=== PATIENT | female | born 1980 | race Caucasian/White ===

== ENCOUNTER 2017-09-28 14:23 | Emergency (ER) | payer OTHER ==
--- NOTE | 2017-09-28 16:29 | EDM.PDOC ---
ED HPI GENERAL MEDICAL PROBLEM - General Chief Complaint: Lower Extremity Injury/Pain Stated Complaint: RT LEG BLOOLDCLOTH Time Seen by Provider: 09/28/17 14:24 Source of Information: Reports: Patient History Limitations: Reports: No Limitations - History of Present Illness INITIAL COMMENTS - FREE TEXT/NARRATIVE: History of present illness: []Patient is in first trimester and was sent over from clinic to rule out a DVT right lower extremity. He has painful nodules that have been there for the past couple weeks. Patient denies any fevers, chills recent illnesses or recent antibiotic use. He states she's had varicose veins in the past but did not present similar. Patient denies any chest pain or shortness of breath. Review of systems: As per history of present illness and below otherwise all systems reviewed and negative. Past medical history: As per history of present illness and as reviewed below otherwise noncontributory. Surgical history: As per history of present illness and as reviewed below otherwise noncontributory. Social history: No reported history of drug or alcohol abuse. Family history: As per history of present illness and as reviewed below otherwise noncontributory. Physical exam: General: Well developed, well nourished in NAD HEENT: Atraumatic, normocephalic, pupils reactive, negative for conjunctival pallor or scleral icterus, mucous membranes moist, throat clear, neck supple, nontender, trachea midline. Lungs: Clear to auscultation, breath sounds equal bilaterally, chest nontender. Heart: S1S2, regular, negative for clicks, rubs, or JVD. Abdomen: Soft, nondistended, nontender. Negative for masses or hepatosplenomegaly. Negative for costovertebral tenderness. Pelvis: Stable nontender. Genitourinary: Deferred. Rectal: Deferred. Extremities: Atraumatic, 4-5 cm erythematous nodules that are tender patient no lesions of skin. negative for cords or calf pain. Neurovascular unremarkable. Neuro: Awake, alert, oriented. Cranial nerves II through XII unremarkable. Cerebellum unremarkable. Motor and sensory unremarkable throughout. Exam nonfocal. Diagnostics: []Ultrasound negative for DVT Therapeutics: [] Impression: []Erythema nodosum Plan: []Warm soaks Tylenol for pain follow-up with primary care. Definitive disposition and diagnosis as appropriate pending reevaluation and review of above. 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: Musculoskeletal History: Reports: None Neurological History: Reports: None Psychiatric History: Reports: None Endocrine/Metabolic History: Reports: None Hematologic History: Reports: None Immunologic History: Reports: None Oncologic (Cancer) History: Reports: None Dermatologic History: Reports: None - Infectious Disease History Infectious Disease History: Reports: Chicken Pox - Past Surgical History Head Surgeries/Procedures: Reports: None HEENT Surgical History: Reports: None Cardiovascular Surgical History: Reports: None Respiratory Surgical History: Reports: None GI Surgical History: Reports: Cholecystectomy Female Surgical History: Reports: None Endocrine Surgical History: Reports: None Neurological Surgical History: Reports: None Musculoskeletal Surgical History: Reports: None Oncologic Surgical History: Reports: None Dermatological Surgical History: Reports: None Social & Family History - Family History Family Medical History: Noncontributory - Tobacco Use Smoking Status *Q: Never Smoker Second Hand Smoke Exposure: No - Caffeine Use Caffeine Use: Reports: Soda - Recreational Drug Use Recreational Drug Use: No Review of Systems - Review of Systems Review Of Systems: See Below (See history of present illness) ED EXAM, GENERAL - Physical Exam Exam: See Below (See history of present illness) Course - Vital Signs Last Recorded V/S: Last Vital Signs Temp 97.3 F 09/28/17 14:34 Pulse 109 H 09/28/17 14:34 Resp 18 09/28/17 14:34 BP 110/88 09/28/17 14:34 Pulse Ox 98 09/28/17 14:34 - Orders/Labs/Meds Orders: Active Orders 24 hr Category Date Time Status Venous Doppler Lwr Ext Rt [US] Stat Exams 09/28/17 14:52 Taken Departure - Departure Time of Disposition: 16:28 Disposition: Home, Self-Care 01 Condition: Good Clinical Impression: Erythema nodosum - Discharge Information Referrals: Sandi Sun DO [Primary Care Provider] - Forms: ED Department Discharge Additional Instructions: The following information is given to patients seen in the emergency department who are being discharged to home. This information is to outline your options for follow-up care. We provide all patients seen in our emergency department with a follow-up referral. The need for follow-up, as well as the timing and circumstances, are variable depending upon the specifics of your emergency department visit. If you don't have a primary care physician on staff, we will provide you with a referral. We always advise you to contact your personal physician following an emergency department visit to inform them of the circumstance of the visit and for follow-up with them and/or the need for any referrals to a consulting specialist. The emergency department will also refer you to a specialist when appropriate. This referral assures that you have the opportunity for follow-up care with a specialist. All of these measure are taken in an effort to provide you with optimal care, which includes your follow-up. Under all circumstances we always encourage you to contact your private physician who remains a resource for coordinating your care. When calling for follow-up care, please make the office aware that this follow-up is from your recent emergency room visit. If for any reason you are refused follow-up, please contact the [facility] Emergency Department at and asked to speak to the emergency department charge nurse. [facility] [address] [place] [id number] - My Orders Last 24 Hours: My Active Orders 09/28/17 14:52 Venous Doppler Lwr Ext Rt [US] Stat - Assessment/Plan Last 24 Hours: My Active Orders 09/28/17 14:52 Venous Doppler Lwr Ext Rt [US] Stat
--- NOTE | 2017-10-01 08:52 | US ---
EXAM DATE: 09/28/17 PATIENT'S AGE: 36 Patient: ROXANA DONOVAN Facility: [place], [place] Site . Site : 1980 Study: US Extremity [id number] 3:55:36 PM Ordering Physician: Ty Kapadia Final Report: INDICATION: LEG PAIN, APPEARS LIKE ERYTHEMA NODOSUM RIGHT LOWER EXTREMITY VENOUS DUPLEX ULTRASOUND TECHNIQUE: Duplex sonography using grayscale imaging as well as color and spectral Doppler interrogation was performed over the right lower extremity with attention to the deep venous system. FINDINGS: The right common femoral, femoral, deep femoral, popliteal, and posterior tibial veins show normal compressibility, color Doppler flow, and augmentation response. Superficial varicose veins are noted over the right thigh. IMPRESSION: No evidence of deep venous thrombosis in the right lower extremity. DAISY RODRIGUEZ MD [employer] [employer] Dictated by: Edinson Rodriguez MD @ 09/28/2017 16:19:22 (Electronic Signature) Report Signed by Proxy. MTDHattie
== END 2017-09-28 16:45 | disposition home or self-care (01) ==
LOC: MW.ED 14:23
DX: O99.711 Diseases of the skin and subcutaneous tissue complicating pregnancy, first trimester (principal); L52 Erythema nodosum
CPT/HCPCS: 93971-26-RT; 93971-RT; 99283-25

== ENCOUNTER 2018-05-05 12:51 | Inpatient (IN) | payer OTHER ==
[2018-05-05] MEDS ORDERED: Methylergonovine 0.2 MG/1 ML Amp IM PRN (13:41)
[2018-05-05] MEDS ORDERED: Lidocaine 1% 50 ML MDV INJECT PRN (13:41)
[2018-05-05] MEDS ORDERED: Sodium Chloride 0.9% 2.5 ML Syringe FLUSH PRN (13:41)
[2018-05-05] MEDS ORDERED: Carboprost Tromethamine 250 MCG/1 ML Amp IM PRN (13:41)
[2018-05-05] MEDS ORDERED: Water For Irrigation,Sterile 1,000 ML Container IRR PRN (13:41)
[2018-05-05] MEDS ORDERED: Misoprostol 200 MCG Tab PO PRN (13:41)
[2018-05-05] MEDS ORDERED: Tranexamic Acid 1,000 MG in Sodium Chloride 0.9% 100 ML IV PRN (13:41)
[2018-05-05] MEDS ORDERED: Nalbuphine 10 MG/1 ML Vial IVPUSH PRN (13:41)
[2018-05-05] MEDS ORDERED: Sodium Chloride 0.9% 10 ML Syringe FLUSH PRN (13:41)
[2018-05-05] MEDS ORDERED: Oxytocin/0.9 % Sodium Chloride 30 UNIT/500 ML BAG IV SCH ×2 (13:45→14:00)
[2018-05-05] MEDS ORDERED: Lactated Ringers 1,000 ML IV SCH (13:45)
[2018-05-05] MEDS ORDERED: Terbutaline 1 MG/ML SDV SUBCUT PRN (13:47)
[2018-05-05] MEDS ORDERED: Misoprostol 25 MCG (1/4 of 100 MCG) Tab PO ONE ×2 (14:37→19:10)
[2018-05-05] MEDS ORDERED: Misoprostol 25 MCG (1/4 of 100 MCG) Tab VAG ONE ×2 (14:39→19:10)
[2018-05-05] MEDS ORDERED: Ampicillin 2 GM in Sodium Chloride 0.9% 100 ML IV ONE (14:40)
[2018-05-05] MEDS: Ampicillin 1 GM in Sodium Chloride 0.9% 50 ML IV SCH ×2 (18:51→22:36)
[2018-05-05] MEDS ORDERED: Ampicillin 1 GM in Sodium Chloride 0.9% 50 ML IV SCH (20:45)
[2018-05-05] MEDS ORDERED: fentaNYL 100 MCG/2 ML SDV ONE (23:05)
[2018-05-05] MEDS ORDERED: Bupivacaine 0.25% 10 ML SDV ONE (23:06)
[2018-05-05] MEDS ORDERED: Lidocaine HCl/EPINEPHrine 5 ML IJ ONE ×2 (23:06→23:07)
--- NOTE | 2018-05-05 23:48 | PCM.PREANE ---
Preanesthetic Assessment - Procedure Proposed Procedure: MADYSON - Anesthesia/Transfusion/Family Hx Anesthesia History: Prior Anesthesia Without Reaction - Review of Systems General: No Symptoms Pulmonary: No Symptoms Cardiovascular: No Symptoms Gastrointestinal: No Symptoms, Other (morbid obesity) Neurological: No Symptoms - Physical Assessment NPO Status Date: 05/05/18 NPO Status Time: 22:50 O2 Sat by Pulse Oximetry: 98 Respiratory Rate: 18 Blood Pressure: 125/71 Height: 1.73 m Weight: 149.685 kg ASA Class: 3E Mental Status: Alert & Oriented x3 Dentition: Reports: Normal Dentition Lungs: Clear to Auscultation Cardiovascular: Regular Rate - Lab Values: Laboratory Last Values WBC 13.48 K/uL (4.0-11.0) H 05/05/18 14:07 RBC 3.79 M/uL (4.30-5.90) L 05/05/18 14:07 Hgb 11.4 g/dL (12.0-16.0) L 05/05/18 14:07 Hct 34.5 % (36.0-46.0) L 05/05/18 14:07 MCV 91.0 fL (80.0-98.0) 05/05/18 14:07 MCH 30.1 pg (27.0-32.0) 05/05/18 14:07 MCHC 33.0 g/dL (31.0-37.0) 05/05/18 14:07 RDW Std Deviation 43.4 fl (28.0-62.0) 05/05/18 14:07 RDW Coeff of Shayy 13 % (11.0-15.0) 05/05/18 14:07 Plt Count 234 K/uL (150-400) 05/05/18 14:07 MPV 11.00 fL (7.40-12.00) 05/05/18 14:07 Nucleated RBC % 0.0 /100WBC 05/05/18 14:07 Nucleated RBCs # 0 K/uL 05/05/18 14:07 Blood Type A POSITIVE 05/05/18 14:07 Antibody Screen NEGATIVE 05/05/18 14:07 - Allergies Allergies/Adverse Reactions: Allergies Allergy/AdvReac Type Severity Reaction Status Date / Time No Known Allergies Allergy Verified 05/05/18 13:41 - Acknowledgements Anesthesia Type Planned: Epidural (patient aware of risks and benifits of MADYSON and wishes to proceed) Pt an Appropriate Candidate for the Planned Anesthesia: Yes Alternatives and Risks of Anesthesia Discussed w Pt/Guardian: Yes Pt/Guardian Understands and Agrees with Anesthesia Plan: Yes PreAnesthesia Questionnaire HEENT History: Reports: None Cardiovascular History: Reports: None Respiratory History: Reports: None Gastrointestinal History: Reports: None Genitourinary History: Reports: None 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: Musculoskeletal History: Reports: None Neurological History: Reports: None Psychiatric History: Reports: None Endocrine/Metabolic History: Reports: None Hematologic History: Reports: None Immunologic History: Reports: None Oncologic (Cancer) History: Reports: None Dermatologic History: Reports: None - Infectious Disease History Infectious Disease History: Reports: Chicken Pox - Past Surgical History Head Surgeries/Procedures: Reports: None HEENT Surgical History: Reports: None Cardiovascular Surgical History: Reports: None Respiratory Surgical History: Reports: None GI Surgical History: Reports: Cholecystectomy Female Surgical History: Reports: None Endocrine Surgical History: Reports: None Neurological Surgical History: Reports: None Musculoskeletal Surgical History: Reports: None Oncologic Surgical History: Reports: None Dermatological Surgical History: Reports: None - HOME MEDS Home Medications: Home Meds [id number]/Iron Fumarate/FA/DSS [ 19 Tablet] 1 tab PO DAILY 09/28/17 [ History] Acetaminophen [Tylenol Extra Strength] 500 mg PO DAILY 05/05/18 [History] - CURRENT (IN HOUSE) MEDS Current Meds: Current Medications Carboprost Tromethamine (Hemabate Ds) 250 mcg IM ASDIRECTED PRN PRN Reason: Post Hemorrhage Lactated Ringer's (Ringers, Lactated) 1,000 mls @ 150 mls/hr IV ASDIRECTED MAGGIE Last Admin: 05/05/18 23:40 Dose: 150 mls/hr Oxytocin/Sodium Chloride (Oxytocin 30 Unit/500 Ml-Ns) 30 unit in 500 mls @ 999 mls/hr IV TITRATE MAGGIE Oxytocin/Sodium Chloride (Oxytocin 30 Unit/500 Ml-Ns) 30 unit in 500 mls @ 2 mls/hr IV TITRATE MAGGIE; Protocol Tranexamic Acid 1,000 mg/ (Sodium Chloride) 110 mls @ 660 mls/hr IV ONETIME PRN PRN Reason: Bleeding Ampicillin Sodium 1 gm/ Sodium (Chloride) 50 mls @ 100 mls/hr IV Q4H [facility] Last Admin: 05/05/18 22:36 Dose: 100 mls/hr Lidocaine HCl (Xylocaine 1%) 50 ml INJECT ONETIME PRN PRN Reason: Laceration repair Methylergonovine Maleate (Methergine) 0.2 mg IM ASDIRECTED PRN PRN Reason: Post Hemorrhage Misoprostol (Cytotec) 200 mcg PO ONETIME PRN PRN Reason: Post Hemorrhage Nalbuphine HCl (Nubain) 10 mg IVPUSH Q1H PRN PRN Reason: Pain (severe 7-10) Sodium Chloride (Saline Flush) 10 ml FLUSH ASDIRECTED PRN PRN Reason: Keep Vein Open Sodium Chloride (Saline Flush) 2.5 ml FLUSH ASDIRECTED PRN PRN Reason: Keep Vein Open Sterile Water (Sterile Water For Irrigation) 1,000 ml IRR ASDIRECTED PRN PRN Reason: delivery Terbutaline Sulfate (Brethine) 0.25 mg SUBCUT ASDIRECTED PRN PRN Reason: Tacysystole Discontinued Medications Bupivacaine HCl (Sensorcaine-Mpf 0.25%) Confirm Administered Dose 10 ml .ROUTE .STK-MED ONE Stop: 05/05/18 23:07 Fentanyl (Sublimaze) Confirm Administered Dose 100 mcg .ROUTE .STK-MED ONE Stop: 05/05/18 23:06 Ampicillin Sodium 2 gm/ Sodium (Chloride) 100 mls @ 200 mls/hr IV ONETIME ONE Stop: 05/05/18 15:09 Last Admin: 05/05/18 14:55 Dose: 200 mls/hr Ampicillin Sodium 1 gm/ Sodium (Chloride) 50 mls @ 100 mls/hr IV Q6H [facility] Fentanyl/Bupivacaine HCl (Kllnbyxl-Lsjdq-Cm 2 Mcg/Ml-0.125%) Confirm Administered Dose 100 mls @ as directed .ROUTE .STK-MED ONE Stop: 05/05/18 23:07 Lidocaine/Epinephrine (Lidocaine 1.5%-Epi 1:200,000) Confirm Administered Dose 5 ml IJ .STK-MED ONE Stop: 05/05/18 23:07 Lidocaine/Epinephrine (Lidocaine 1.5%-Epi 1:200,000) Confirm Administered Dose 5 ml IJ .STK-MED ONE Stop: 05/05/18 23:08 Misoprostol (Cytotec) 25 mcg PO ONETIME ONE Stop: 05/05/18 14:38 Last Admin: 05/05/18 14:58 Dose: 25 mcg Misoprostol (Cytotec) 25 mcg VAG ONETIME ONE Stop: 05/05/18 14:40 Last Admin: 05/05/18 14:58 Dose: 25 mcg Misoprostol (Cytotec) 25 mcg VAG ONETIME ONE Stop: 05/05/18 19:11 Last Admin: 05/05/18 19:25 Dose: 25 mcg Misoprostol (Cytotec) 25 mcg PO ONETIME ONE Stop: 05/05/18 19:11 Last Admin: 05/05/18 19:25 Dose: 25 mcg
[2018-05-06] MEDS: Ampicillin 1 GM in Sodium Chloride 0.9% 50 ML IV SCH (02:39)
[2018-05-06] MEDS ORDERED: oxyCODONE 5 MG Tab PO PRN (03:54)
[2018-05-06] MEDS ORDERED: Docusate Sodium 100 MG Cap PO PRN (03:54)
[2018-05-06] MEDS ORDERED: Acetaminophen 500 MG Tab PO PRN (03:54)
[2018-05-06] MEDS ORDERED: Ibuprofen 400 MG Tab PO PRN (03:54)
[2018-05-06] MEDS ORDERED: Benzocaine/Menthol 20%-0.5% Spray 78 GM Cannister TOP PRN (03:54)
[2018-05-06] MEDS ORDERED: Bisacodyl 10 MG Supp RECTAL PRN (03:54)
[2018-05-06] MEDS ORDERED: Witch Hazel Medicated Pads 40/Jar TOP PRN (03:54)
[2018-05-06] MEDS ORDERED: Lanolin 100% Cream 7 GM Tube TOP PRN (03:54)
--- NOTE | 2018-05-06 03:54 | PCM.LDHP ---
L&D History of Present Illness - General Date of Service: 05/06/18 Admit Problem/Dx: Patient Status Order with Admit Dx/Problem 05/05/18 13:41 Patient Status [ADT] Routine Admission Diagnosis/Problem Admission Diagnosis/Problem Source of Information: Patient History Limitations: Reports: No Limitations - History of Present Illness Improves with: Reports: None Worsens with: Reports: None Associated Symptoms: Reports: N - Related Data Allergies/Adverse Reactions: Allergies Allergy/AdvReac Type Severity Reaction Status Date / Time No Known Allergies Allergy Verified 05/05/18 13:41 Home Medications: Home Meds [id number]/Iron Fumarate/FA/DSS [ 19 Tablet] 1 tab PO DAILY 09/28/17 [ History] Acetaminophen [Tylenol Extra Strength] 500 mg PO DAILY 05/05/18 [History] Past Medical History HEENT History: Reports: None Cardiovascular History: Reports: None Respiratory History: Reports: None Gastrointestinal History: Reports: None Genitourinary History: Reports: None 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: Musculoskeletal History: Reports: None Neurological History: Reports: None Psychiatric History: Reports: None Endocrine/Metabolic History: Reports: None Hematologic History: Reports: None Immunologic History: Reports: None Oncologic (Cancer) History: Reports: None Dermatologic History: Reports: None - Infectious Disease History Infectious Disease History: Reports: Chicken Pox - Past Surgical History Head Surgeries/Procedures: Reports: None HEENT Surgical History: Reports: None Cardiovascular Surgical History: Reports: None Respiratory Surgical History: Reports: None GI Surgical History: Reports: Cholecystectomy Female Surgical History: Reports: None Endocrine Surgical History: Reports: None Neurological Surgical History: Reports: None Musculoskeletal Surgical History: Reports: None Oncologic Surgical History: Reports: None Dermatological Surgical History: Reports: None Social & Family History - Family History Family Medical History: Noncontributory - Caffeine Use Caffeine Use: Reports: Soda H&P Review of Systems - Review of Systems: Review Of Systems: See Below General: Reports: No Symptoms HEENT: Reports: No Symptoms Pulmonary: Reports: No Symptoms Cardiovascular: Reports: No Symptoms Gastrointestinal: Reports: No Symptoms Genitourinary: Reports: No Symptoms Musculoskeletal: Reports: No Symptoms Skin: Reports: No Symptoms Psychiatric: Reports: No Symptoms Neurological: Reports: No Symptoms Hematologic/Lymphatic: Reports: No Symptoms Immunologic: Reports: No Symptoms L&D Exam - Exam Exam: See Below - Vital Signs Vital Signs: Last Vital Signs Temp Pulse Resp 18 05/05/18 23:48 BP 125/71 05/05/18 23:48 Pulse Ox 98 05/05/18 23:48 Weight: 149.685 kg - OB Specific Fundal Height In cm: 40 Contraction Intensity: Mild Movement: Active Heart Tones: Present Presentation: Vertex - Chavez Score Chavez Score Cervix Position: Midposition Chavez Score Consistency: Medium Chavez Score Effacement: 51-70% Chavez Score Dilation: 1-2 cm Chavez Score Infant's Station: -2 Chavez Score Total: 6 - Exam General: Alert, Oriented HEENT: PERRLA, Conjunctiva Clear, EACs Clear, EOMI, Hearing Intact, Mucosa Moist & Penn, Nares Patent, Normal Nasal Septum, Posterior Pharynx Clear, TMs Clear Neck: Supple, Trachea Midline Lungs: Clear to Auscultation, Normal Respiratory Effort Cardiovascular: Regular Rate, Regular Rhythm GI/Abdominal Exam: Normal Bowel Sounds, Soft, Non-Tender, No Organomegaly, No Distention, No Abnormal Bruit, No Mass, Pelvis Stable Rectal Exam: Normal Exam, Normal Rectal Tone Genitourinary: Normal external exam, Normal bimanual exam, Normal speculum exam Back Exam: Normal Inspection, Full Range of Motion Extremities: Normal Inspection, Normal Range of Motion, Non-Tender, No Pedal Edema, Normal Capillary Refill Skin: Warm, Dry, Intact Neurological: Cranial Nerves Intact, Reflexes Equal Bilateral Psychiatric: Alert, Normal Affect, Normal Mood - Patient Data Lab Results Last 24 hrs: Laboratory Results - last 24 hr 05/05/18 05/05/18 Range/Units 14:07 14:07 WBC 13.48 H (4.0-11.0) K/uL RBC 3.79 L (4.30-5.90) M/uL Hgb 11.4 L (12.0-16.0) g/dL Hct 34.5 L (36.0-46.0) % MCV 91.0 (80.0-98.0) fL MCH 30.1 (27.0-32.0) pg MCHC 33.0 (31.0-37.0) g/dL RDW Std Deviation 43.4 (28.0-62.0) fl RDW Coeff of Shayy 13 (11.0-15.0) % Plt Count 234 (150-400) K/uL MPV 11.00 (7.40-12.00) fL Nucleated RBC % 0.0 /100WBC Nucleated RBCs # 0 K/uL Blood Type A POSITIVE Antibody Screen NEGATIVE Result Diagrams: 05/05/18 14:07 Problem List Initiated/Reviewed/Updated: Yes Orders Last 24hrs: Active Orders 24 hr Category Date Time Status Patient Status [ADT] Routine ADT 05/05/18 13:41 Active May Shower [RC] ASDIRECTED Care 05/05/18 13:41 Active Notify Provider [RC] PRN Care 05/05/18 13:41 Active Oxygen Therapy [RC] ASDIRECTED Care 05/05/18 13:47 Active Up ad Kaitlynn [RC] ASDIRECTED Care 05/05/18 13:41 Active Vital Signs [RC] PER UNIT ROUTINE Care 05/05/18 13:41 Active Clear Liquid Diet [DIET] Diet 05/05/18 Dinner Active Ampicillin 1 gm Med 05/05/18 18:30 Active Sodium Chloride 0.9% [Normal Saline] 50 ml IV Q4H Carboprost Tromethamine [Hemabate DS] Med 05/05/18 13:41 Active 250 mcg IM ASDIRECTED PRN Lactated Ringers [Ringers, Lactated] 1,000 ml Med 05/05/18 13:45 Active IV ASDIRECTED Lidocaine 1% [Xylocaine 1%] Med 05/05/18 13:41 Active 50 ml INJECT ONETIME PRN Methylergonovine [Methergine] Med 05/05/18 13:41 Active 0.2 mg IM ASDIRECTED PRN Nalbuphine [Nubain] Med 05/05/18 13:41 Active 10 mg IVPUSH Q1H PRN Oxytocin/0.9 % Sodium Chloride [Oxytocin 30 Unit/500 ML Med 05/05/18 13:45 Active -NS] 30 unit in 500 ml IV TITRATE Oxytocin/0.9 % Sodium Chloride [Oxytocin 30 Unit/500 ML Med 05/05/18 14:00 Active -NS] 30 unit in 500 ml IV TITRATE Sodium Chloride 0.9% [Saline Flush] Med 05/05/18 13:41 Active 10 ml FLUSH ASDIRECTED PRN Sodium Chloride 0.9% [Saline Flush] Med 05/05/18 13:41 Active 2.5 ml FLUSH ASDIRECTED PRN Terbutaline [Brethine] Med 05/05/18 13:47 Active 0.25 mg SUBCUT ASDIRECTED PRN Tranexamic Acid [Cyklokapron] 1,000 mg Med 05/05/18 13:41 Active Sodium Chloride 0.9% [Normal Saline] 100 ml IV ONETIME Water For Irrigation,Sterile [Sterile Water for Med 05/05/18 13:41 Active Irrigation] 1,000 ml IRR ASDIRECTED PRN miSOPROStol [Cytotec] Med 05/05/18 13:41 Active 200 mcg PO ONETIME PRN Scalp Electrode [WOMSER] Per Unit Routine Oth 05/05/18 13:41 Ordered Peripheral IV Insertion Adult [OM.PC] Routine Oth 05/05/18 13:41 Ordered Resuscitation Status Routine Resus Stat 05/05/18 13:41 Ordered Medication Orders Carboprost Tromethamine (Hemabate Ds) 250 mcg IM ASDIRECTED PRN PRN Reason: Post Hemorrhage Lactated Ringer's (Ringers, Lactated) 1,000 mls @ 150 mls/hr IV ASDIRECTED MAGGIE Last Admin: 05/05/18 23:40 Dose: 150 mls/hr Oxytocin/Sodium Chloride (Oxytocin 30 Unit/500 Ml-Ns) 30 unit in 500 mls @ 999 mls/hr IV TITRATE [facility] Oxytocin/Sodium Chloride (Oxytocin 30 Unit/500 Ml-Ns) 30 unit in 500 mls @ 2 mls/hr IV TITRATE [facility]; Protocol Tranexamic Acid 1,000 mg/ (Sodium Chloride) 110 mls @ 660 mls/hr IV ONETIME PRN PRN Reason: Bleeding Ampicillin Sodium 1 gm/ Sodium (Chloride) 50 mls @ 100 mls/hr IV Q4H [facility] Last Admin: 05/06/18 02:39 Dose: 100 mls/hr Infusion: 05/05/18 23:06 Dose: 100 mls/hr Admin: 05/05/18 22:36 Dose: 100 mls/hr Infusion: 05/05/18 19:21 Dose: 100 mls/hr Admin: 05/05/18 18:51 Dose: 100 mls/hr Lidocaine HCl (Xylocaine 1%) 50 ml INJECT ONETIME PRN PRN Reason: Laceration repair Methylergonovine Maleate (Methergine) 0.2 mg IM ASDIRECTED PRN PRN Reason: Post Hemorrhage Misoprostol (Cytotec) 200 mcg PO ONETIME PRN PRN Reason: Post Hemorrhage Nalbuphine HCl (Nubain) 10 mg IVPUSH Q1H PRN PRN Reason: Pain (severe 7-10) Sodium Chloride (Saline Flush) 10 ml FLUSH ASDIRECTED PRN PRN Reason: Keep Vein Open Sodium Chloride (Saline Flush) 2.5 ml FLUSH ASDIRECTED PRN PRN Reason: Keep Vein Open Sterile Water (Sterile Water For Irrigation) 1,000 ml IRR ASDIRECTED PRN PRN Reason: delivery Terbutaline Sulfate (Brethine) 0.25 mg SUBCUT ASDIRECTED PRN PRN Reason: Tacysystole Assessment/Plan Comment:: IUP term admitted for elective induction.
[2018-05-06] MEDS: Acetaminophen 500 MG Tab PO PRN ×2 (05:07→16:30)
--- NOTE | 2018-05-06 06:58 | OR ---
SURGEON: Mark Anthony Hill MD DATE OF PROCEDURE: Ms. Chatman is 37 years old. She is para 7-0-0-7, all of them delivered via spontaneous vaginal delivery. The patient is followed in our clinic primarily by our nurse first responder. She is 39 plus weeks. She is admitted for elective induction because of her multiple previous vaginal births and she had does not live close to the hospital. At the time of admission, she was 1 cm, 50%, vertex was -3. Her GBS status is positive. She was started on antibiotic. According to the protocol, the patient was induced with Cytotec, 2 doses required for the cervix and she started having regular contraction. She progressed to 4 to 5 cm with bulging bag of water. She had epidural anesthesia for labor analgesia without any problem. heart rate was category I, and the patient had progressed from 8 to 9. With bulging bag of water and vertex presentation, I did an artificial rupture of the membrane, and amniotic fluid was clear. A few minutes later, the patient progressed to complete-complete, vertex, +1 to +2 station. It was felt that the fetus was in occiput posterior position, but the patient was able to push and accomplish normal spontaneous vaginal delivery of a male fetus. One nuchal cord was noticed. The fetus cried immediately. score and weight are not available at this time. The placenta was spontaneous, complete, and intact without any problem. There was no need for episiotomy. There was no vaginal or labial laceration. Estimated blood loss was 250 to 300 mL. heart rate was category I through the entire process of labor. There was no complication in the labor or the delivery. KATIE / JULIANA /[id number]
[2018-05-07] MEDS: Ibuprofen 800 MG Tab PO PRN ×2 (00:09→08:25)
--- NOTE | 2018-05-07 07:57 | PCM48HPAN ---
Post Anesthesia Note - EVALUATION WITHIN 48HRS OF ANESTHETIC Vital Signs in Normal Range: Yes Patient Participated in Evaluation: Yes Respiratory Function Stable: Yes Airway Patent: Yes Cardiovascular Function Stable: Yes Hydration Status Stable: Yes Pain Control Satisfactory: Yes Nausea and Vomiting Control Satisfactory: Yes Mental Status Recovered: Yes Resp Rate: 16 Blood Pressure: 125/71 - COMMENTS/OBSERVATIONS Free Text/Narrative:: Pt resting, but with plans to go home today. No apparent anesthesia complications.
--- NOTE | 2018-05-07 08:53 | PCM.DCSUM1 ---
Discharge Summary - Hospital Course Free Text/Narrative:: Discharge home with infant. Follow up in 6 weeks for post Diagnosis: Stroke: No - Discharge Data Discharge Date: 05/07/18 Discharge Disposition: Home, Self-Care 01 Condition: Good - Patient Instructions Diet: Usual Diet as Tolerated Activity: As Tolerated, No Strenuous Activities, Rest and Relax Today Driving: May Drive Today Showering/Bathing: May Shower Notify Provider of: Fever, Increased Pain, Swelling and Redness, Nausea and/or Vomiting Other/Special Instructions: Discharge home with . Follow up in 6 weeks for post - Discharge Plan *PRESCRIPTION DRUG MONITORING PROGRAM REVIEWED*: Not Applicable *COPY OF PRESCRIPTION DRUG MONITORING REPORT IN PATIENT [facility]ERNON: Not Applicable Home Medications: Home Meds [id number]/Iron Fumarate/FA/DSS [ 19 Tablet] 1 tab PO DAILY 09/28/17 [ History] Acetaminophen [Tylenol Extra Strength] 500 mg PO DAILY 05/05/18 [History] - Discharge Summary/Plan Comment DC Time >30 min.: Yes - General Info Date of Service: 05/07/18 Admission Dx/Problem (Free Text: Patient Status Order with Admit Dx/Problem 05/05/18 13:41 Patient Status [ADT] Routine Admission Diagnosis/Problem Admission Diagnosis/Problem Functional Status: Reports: Pain Controlled, Tolerating Diet, Ambulating, Urinating - Review of Systems General: Reports: No Symptoms HEENT: Reports: No Symptoms Pulmonary: Reports: No Symptoms Cardiovascular: Reports: No Symptoms Gastrointestinal: Reports: No Symptoms Genitourinary: Reports: No Symptoms Musculoskeletal: Reports: No Symptoms Skin: Reports: No Symptoms Neurological: Reports: No Symptoms Psychiatric: Reports: No Symptoms - Patient Data Vitals - Most Recent: Last Vital Signs Temp 36.2 C 05/07/18 08:05 Pulse 73 05/07/18 08:05 Resp 18 05/07/18 08:05 BP 126/70 05/07/18 08:05 Pulse Ox 99 05/07/18 08:05 Weight - Most Recent: 149.685 kg Lab Results - Last 24 hrs: Laboratory Results - last 24 hr 05/07/18 Range/Units 04:45 Hgb 10.7 L (12.0-16.0) g/dL Hct 32.7 L (36.0-46.0) % Med Orders - Current: Current Medications Acetaminophen (Tylenol Extra Strength) 500 mg PO Q4H PRN PRN Reason: Pain Acetaminophen (Tylenol Extra Strength) 1,000 mg PO Q4H PRN PRN Reason: Pain Last Admin: 05/06/18 16:30 Dose: 1,000 mg Benzocaine/Menthol (Dermoplast Pain Relief 20%-0.5% [place]) 78 gm TOP ASDIRECTED PRN PRN Reason: Perineal Comfort Measure Bisacodyl (Dulcolax) 10 mg RECTAL ONETIME PRN PRN Reason: Constipation Carboprost Tromethamine (Hemabate Ds) 250 mcg IM ASDIRECTED PRN PRN Reason: Post Hemorrhage Docusate Sodium (Colace) 100 mg PO BID PRN PRN Reason: Constipation Emollient Ointment (Lansinoh Hpa) 0 gm TOP ASDIRECTED PRN PRN Reason: Sore Nipples Last Admin: 05/06/18 05:08 Dose: 7 gm Lactated Ringer's (Ringers, Lactated) 1,000 mls @ 150 mls/hr IV ASDIRECTED MAGGIE Last Infusion: 05/06/18 03:48 Dose: 0 mls/hr Oxytocin/Sodium Chloride (Oxytocin 30 Unit/500 Ml-Ns) 30 unit in 500 mls @ 999 mls/hr IV TITRATE MAGGIE Last Infusion: 05/06/18 03:48 Dose: 999 mls/hr Oxytocin/Sodium Chloride (Oxytocin 30 Unit/500 Ml-Ns) 30 unit in 500 mls @ 2 mls/hr IV TITRATE [facility]; Protocol Tranexamic Acid 1,000 mg/ (Sodium Chloride) 110 mls @ 660 mls/hr IV ONETIME PRN PRN Reason: Bleeding Ibuprofen (Motrin) 400 mg PO Q4H PRN PRN Reason: Pain Ibuprofen (Motrin) 800 mg PO Q6H PRN PRN Reason: Pain Last Admin: 05/07/18 08:25 Dose: 800 mg Lidocaine HCl (Xylocaine 1%) 50 ml INJECT ONETIME PRN PRN Reason: Laceration repair Methylergonovine Maleate (Methergine) 0.2 mg IM ASDIRECTED PRN PRN Reason: Post Hemorrhage Misoprostol (Cytotec) 200 mcg PO ONETIME PRN PRN Reason: Post Hemorrhage Nalbuphine HCl (Nubain) 10 mg IVPUSH Q1H PRN PRN Reason: Pain (severe 7-10) Oxycodone HCl (Oxycodone) 5 mg PO Q2H PRN PRN Reason: Pain Sodium Chloride (Saline Flush) 10 ml FLUSH ASDIRECTED PRN PRN Reason: Keep Vein Open Sodium Chloride (Saline Flush) 2.5 ml FLUSH ASDIRECTED PRN PRN Reason: Keep Vein Open Sterile Water (Sterile Water For Irrigation) 1,000 ml IRR ASDIRECTED PRN PRN Reason: delivery Terbutaline Sulfate (Brethine) 0.25 mg SUBCUT ASDIRECTED PRN PRN Reason: Tacysystole Witch Fior (Tucks) 1 pad TOP ASDIRECTED PRN PRN Reason: comfort care Discontinued Medications Bupivacaine HCl (Sensorcaine-Mpf 0.25%) Confirm Administered Dose 10 ml .ROUTE .STK-MED ONE Stop: 05/05/18 23:07 Fentanyl (Sublimaze) Confirm Administered Dose 100 mcg .ROUTE .STK-MED ONE Stop: 05/05/18 23:06 Ampicillin Sodium 2 gm/ Sodium (Chloride) 100 mls @ 200 mls/hr IV ONETIME ONE Stop: 05/05/18 15:09 Last Admin: 05/05/18 14:55 Dose: 200 mls/hr Ampicillin Sodium 1 gm/ Sodium (Chloride) 50 mls @ 100 mls/hr IV Q6H MAGGIE Ampicillin Sodium 1 gm/ Sodium (Chloride) 50 mls @ 100 mls/hr IV Q4H MAGGIE Last Admin: 05/06/18 02:39 Dose: 100 mls/hr Fentanyl/Bupivacaine HCl (Pabkyllr-Ypoob-Di 2 Mcg/Ml-0.125%) Confirm Administered Dose 100 mls @ as directed .ROUTE .STK-MED ONE Stop: 05/05/18 23:07 Lidocaine/Epinephrine (Lidocaine 1.5%-Epi 1:200,000) Confirm Administered Dose 5 ml IJ .STK-MED ONE Stop: 05/05/18 23:07 Lidocaine/Epinephrine (Lidocaine 1.5%-Epi 1:200,000) Confirm Administered Dose 5 ml IJ .STK-MED ONE Stop: 05/05/18 23:08 Misoprostol (Cytotec) 25 mcg PO ONETIME ONE Stop: 05/05/18 14:38 Last Admin: 05/05/18 14:58 Dose: 25 mcg Misoprostol (Cytotec) 25 mcg VAG ONETIME ONE Stop: 05/05/18 14:40 Last Admin: 05/05/18 14:58 Dose: 25 mcg Misoprostol (Cytotec) 25 mcg VAG ONETIME ONE Stop: 05/05/18 19:11 Last Admin: 05/05/18 19:25 Dose: 25 mcg Misoprostol (Cytotec) 25 mcg PO ONETIME ONE Stop: 05/05/18 19:11 Last Admin: 05/05/18 19:25 Dose: 25 mcg - Exam General: Reports: Alert, Oriented, Cooperative, No Acute Distress Lungs: Reports: Clear to Auscultation, Normal Respiratory Effort. Denies: Decreased Breath Sounds, Crackles Cardiovascular: Reports: Regular Rate, Regular Rhythm. Denies: No Murmurs, Irregular Rhythm GI/Abdominal Exam: Normal Bowel Sounds, Soft, Non-Tender, No Organomegaly, No Distention, No Abnormal Bruit, No Mass, Pelvis Stable (Female) Exam: Deferred, Vaginal Bleeding Rectal (Female) Exam: Deferred Back Exam: Reports: Normal Inspection, Full Range of Motion Extremities: Normal Inspection, Normal Range of Motion, Non-Tender, No Pedal Edema, Normal Capillary Refill Skin: Reports: Warm, Dry, Intact Wound/Incisions: Reports: Healing Well Neurological: Reports: No New Focal Deficit Psy/Mental Status: Reports: Alert, Normal Affect, Normal Mood
== END 2018-05-07 11:30 | disposition home or self-care (01) | DRG 807 ==
LOC: MW.OBCHECK 12:51 → MW.OB 12:53 → MW.OBCHECK 13:35 → MW.OB 13:41 → OBSVTOIN 05-06 03:48
PROVIDERS: ADMIT Obstetrics & Gynecology; ATTEND Obstetrics & Gynecology
PROC: 3E0R3BZ Introduction of Anesthetic Agent into Spinal Canal, Percutaneous Approach (ICD-10-PCS; 2018-05-05)
PROC: 00HU33Z Insertion of Infusion Device into Spinal Canal, Percutaneous Approach (ICD-10-PCS; 2018-05-05)
PROC: 10E0XZZ Delivery of Products of Conception, External Approach (ICD-10-PCS; principal; 2018-05-06)
PROC: 3E0P7VZ Introduction of Hormone into Female Reproductive, Via Natural or Artificial Opening (ICD-10-PCS; principal; 2018-05-06)
PROC: 10907ZC Drainage of Amniotic Fluid, Therapeutic from Products of Conception, Via Natural or Artificial Opening (ICD-10-PCS; principal; 2018-05-06)
DX: O99.214 Obesity complicating childbirth (principal); Z37.0 Single live birth; E66.01 Morbid (severe) obesity due to excess calories; O99.824 Streptococcus B carrier state complicating childbirth; Z3A.39 39 weeks gestation of pregnancy; O64.0XX0 Obstructed labor due to incomplete rotation of fetal head, not applicable or unspecified; O69.81X0 Labor and delivery complicated by cord around neck, without compression, not applicable or unspecified
CPT/HCPCS: 01967; 36415; 51702; 59025; 59409; 85014; 85018; 85027; 86850; 86900; 86901; A9270-GY; J0290; J2590; J3010; J3490; J7030; J7050; J7120

== ENCOUNTER 2022-04-06 06:24 | Emergency (ER) | payer OTHER ==
[2022-04-06 07:27] LABS: CARBON DIOXIDE,CO2 27.4 mmol/L (21.0-32.0); POTASSIUM,K 3.7 mmol/L (3.5-5.1)
[2022-04-06] MEDS ORDERED: Magnesium Oxide 400 MG Tab PO ONE (07:35)
== END 2022-04-06 07:48 | disposition home or self-care (01) ==
LOC: MW.ED 06:24
DX: R00.2 Palpitations (principal); R00.0 Tachycardia, unspecified
CPT/HCPCS: 36415; 71045; 80053; 83735; 84484; 85025; 93005; 99285; A9270